=== PATIENT | female | born 1985 | race African-American/Black ===

== ENCOUNTER 2017-06-18 10:17 | Emergency (ER) | payer SELFPAY ==
[~2017-06-18] VITALS: Ht 165.1 cm; Wt 96.0 kg
[~2017-06-18 10:17] MED LIST: AMOX500T PO; HYDR-3533 PO
[2017-06-18 10:18] VITALS: BP 126/102; PULSE 72; RESP 15; TEMP 98.9; O2SAT 98
--- NOTE | 2017-06-18 10:39 | PD ---
HPI Chief Complaint: Oral / Dental Pain or Problem Time Seen by Provider: 10:30 Travel History International Travel<30 days: No Contact w/Intl Traveler<30days: No Traveled to known affect area: No History of Present Illness HPI Patient comes in complaining of left lower dental pain that she awoke with this morning. Describes pain as a throbbing pain that radiates into her left ear. Patient denies doing anything for this prior to coming to the emergency department. Pain is worse with smoking. Denies anything making the pain better. Denies , fevers, difficulty swallowing, nausea, vomiting, headache, or neck pain. PFSH Past Medical History Asthma: No Cancer: No Cardiovascular Problems: No Diminished Hearing: No Endocrine: Yes (PATIENT STATES CAN BE HYPOGLYCEMIC, HAS NOT BEEN TESTED FOR DIABETES) Gastrointestinal Disorders: Yes (SURGERY AN FOR BLOCKED INTESTINES) Genitourinary: No Headaches: Yes Implanted Vascular Access Dvce: No Musculoskeletal: Yes (BROKE RIGHT ARM A CHILD, NOT SURE IF SURGERY) Neurologic: Yes Psychiatric: No Respiratory: No Migraines: Yes Seizures: No Ulcer: Yes (PEPTIC) Tetanus Vaccination: < 5 Years ?: Not LMP: 06/11/17 : 1 Para: 1 Miscarriage: 0 Past Surgical History Abdominal Surgery: Yes (APPENDECTOMY A BABY) Appendectomy: Yes Pacemaker: No Other Surgery: Yes (APPENDECTOMY A BABY) Social History Alcohol Use: No Tobacco Use: Yes (6 cig a day ) Substance Use: No Allergies-Medications (Allergen,Severity, Reaction): Coded Allergies: Fish Containing Products (Unverified Allergy, Severe, SWELLING, 06/18/17) iodine (Unverified Allergy, Severe, SWELLS UP, 06/18/17) potassium iodide (Unverified Allergy, Severe, SWELLS UP, 06/18/17) povidone-iodine (Unverified Allergy, Severe, SWELLS UP, 06/18/17) sodium iodide (Unverified Allergy, Severe, SWELLS UP, 06/18/17) sodium iodide (Unverified Allergy, Severe, SWELLS UP, 06/18/17) Uncoded Allergies: IVP (Allergy, Severe, RASH, 06/02/11) Reported Meds & Prescriptions Reported Meds & Active Scripts Active Naprosyn (Naproxen) 500 Mg Tab 500 Mg PO Q12HR PRN Clindamycin (Clindamycin HCl) 150 Mg Cap 2 Cap PO Q6H 10 Days Lortab 5 mg/325 mg (Hydrocodone/Acetaminophen 5 mg/325 mg) 1 Tab 1 Tab PO Q6H PRN Amoxicillin 500 Mg Cap 500 Mg PO TID Review of Systems Except as stated in HPI: all other systems reviewed are Neg Physical Exam Narrative GENERAL: Well-developed, overly nourished, in no acute distress, and non-ill appearing. SKIN: Focused skin assessment warm and dry. HEAD: Atraumatic. Normocephalic. EYES: Pupils equal and round. EOMI. No scleral icterus. No injection or drainage. ENT: No nasal bleeding or discharge. Mucous membranes pink and moist. Poor dentition with no visible or palpable abscess. Floor the mouth, submandibular, submental are all soft to palpation. NECK: Trachea midline. No cervical lymphadenopathy. Supple. No nuclear rigidity. RESPIRATORY: No accessory muscle use. No respiratory distress. MUSCULOSKELETAL: No obvious deformities. No clubbing. No cyanosis. No edema. Full range of motion. NEUROLOGICAL: Awake and alert. No obvious cranial nerve deficits. Motor grossly within normal limits. Normal speech. PSYCHIATRIC: Appropriate mood and affect; insight and judgment normal. Data Data Last Documented VS Vital Signs Date Time Temp Pulse Resp B/P (MAP) Pulse Ox O2 Delivery O2 Flow Rate FiO2 06/18/17 10:53 06/18/17 10:18 98.9 72 15 98 Orders Orders Clindamycin (Cleocin) (06/18/17 10:45) Naproxen (Naprosyn) (06/18/17 10:45) Ed Discharge Order (06/18/17 10:40) [facility] Medical Decision Making Medical Screen Exam Complete: Yes Emergency Medical Condition: Yes Differential Diagnosis Dental abscess, dental infection, dentalgia Narrative Course The patient presented with dental pain. There is no fever. There is no significant facial swelling or evidence of cellulitis. There is poor dentition but no evidence of drainable abscess at this time. There is no evidence of significant deep or invading abscess at this time. The patient will be placed on antibiotics and pain medication. The patient was instructed to follow up with a dentist. The patient was given the dental referral sheet. Warnings were discussed with the patient regarding worsening of infection. The patient is to return if pain worsens, develops progressive swelling or facial redness or fever. The patient agrees with plan. Patient in no obvious distress upon re-evaluation. Patient was asked if they wanted to speak to my attending, which the patient did not wish to do at this time. Any questions/concerns in reference to patient diagnosis/condition discussed and clarified prior to patient's discharge. Reinforced sheer importance of close follow up with patient's primary physician or primary care clinic and/or dentist. Instructed patient to return to ED immediately, if symptoms return/worsen. Patient showed understanding of above instructions. Further instructions and recommendations were detailed in discharge paperwork. Patient ambulated without difficulty out of ED at discharge. Diagnosis Primary Impression: Infected dental caries Referrals: [facility] Patient Instructions: Dental Abscess (GEN), Dental Caries (DC), General Instructions Additional Instructions: Follow-up with your primary care physician and dentist as soon as possible. Rinse mouth with warm salt water gargles. Take all medication as prescribed. Return to the emergency department if symptoms get worse. Med/Other Pt SpecificInfo: Prescription(s) given Scripts Naproxen (Naprosyn) 500 Mg Tab 500 MG PO Q12HR Y for PAIN SCALE 1 TO 10, #14 TAB 0 Refills Prov: Enmanuel Alanis MD 06/18/17 Clindamycin (Clindamycin) 150 Mg Cap 2 CAP PO Q6H for Infection for 10 Days, #80 CAP 0 Refills Prov: Enmanuel Alanis MD 06/18/17 Disposition: 01 DISCHARGE HOME Condition: Stable Andrea Carlson Jun 18, 2017 10:39
[2017-06-18] MEDS ORDERED: CLIN150C14 PO (10:40)
[2017-06-18] MEDS ORDERED: NAPR500 PO (10:40)
[2017-06-18] MEDS ORDERED: CLINDAMYCIN 150 MG CAP PO ONE (10:45)
[2017-06-18] MEDS ORDERED: NAPROXEN 500 MG TAB PO ONE (10:45)
== END 2017-06-18 10:55 | disposition home or self-care (01) ==
LOC: NEPK 10:17
DX: K02.9 Dental caries, unspecified (principal); F17.210 Nicotine dependence, cigarettes, uncomplicated
CPT/HCPCS: 99283

== ENCOUNTER 2017-08-10 08:29 | Emergency (ER) | payer SELFPAY ==
[~2017-08-10] VITALS: Ht 165.1 cm; Wt 75.0 kg
[~2017-08-10 08:29] MED LIST changes: +CLIN150C14 PO; +NAPR500 PO
[2017-08-10 08:32] VITALS: BP 100/84; PULSE 91; RESP 14; TEMP 98.9; O2SAT 98
[2017-08-10 09:22] LABS: AUTOMATED NEUTROPHIL # 2.5 TH/MM3 (1.8-7.7); BASOPHIL % 0.5 % (0.0-2.0); EOSINOPHIL % 0.6 % (0.0-4.0); HEMATOCRIT 40.1 % (35.0-46.0); HEMOGLOBIN 13.7 GM/DL (11.6-15.3); LYMPH % 41.9 % (9.0-44.0); LYMPHOCYTE # 2.1 TH/MM3 (1.0-4.8); MEAN CELL VOLUME 86.5 FL (80.0-100.0); MEAN CORPUSCULAR HEMOGLOBIN 29.5 PG (27.0-34.0); MEAN CORPUSCULAR HGB CONC 34.1 % (32.0-36.0); MEAN PLATELET VOLUME 8.8 FL (7.0-11.0); MONO % 6.3 % (0.0-8.0); MONOCYTE # 0.3 TH/MM3 (0-0.9); NEUT % 50.7 % (16.0-70.0); PLATELET COUNT 223 TH/MM3 (150-450); RED BLOOD COUNT 4.64 MIL/MM3 (4.00-5.30); RED CELL DISTRIBUTION WIDTH 13.2 % (11.6-17.2)
[2017-08-10 09:35] LABS: BACTERIA, URINE FEW /hpf; BILIRUBIN, URINE NEG (NEG); BLOOD, URINE LARGE (NEG); GLUCOSE,URINE NEG (NEG); KETONE, URINE TRACE mg/dL (NEG); MUCUS URINE FEW /lpf (OCC); NITRITE,URINE NEG (NEG); PH, URINE 5.5 (5.0-8.5); SQUAMOUS EPITHELIAL CELL URINE 3 /hpf (0-5); URINE LEUKOCYTE ESTERASE SMALL (NEG)
[2017-08-10 09:36] LABS: URINE COLOR RED (YELLW/STRAW)
[2017-08-10 09:55] LABS: ALT (GPT) 22 U/L (10-53)
[2017-08-10 09:57] LABS: ALKALINE PHOSPHATASE 87 U/L (45-117); TOTAL BILIRUBIN ADULT 0.4 MG/DL (0.2-1.0); TOTAL PROTEIN 7.4 GM/DL (6.4-8.2)
--- NOTE | 2017-08-10 09:59 | PD ---
HPI Chief Complaint: Bleeding Time Seen by Provider: 09:41 Travel History International Travel<30 days: No Contact w/Intl Traveler<30days: No Traveled to known affect area: No History of Present Illness HPI 32-year-old female complains of vaginal bleeding. Started last night. Last menstruation started a couple days prior. She reports it to be a difficult for her to have heavy menstrual bleeding. She reports using up to 6 pads an hour. No abnormal discharge. No chest pain shortness of breath nausea vomiting fever chills or presyncope complaints. Severity moderate. Location gynecologic. PFSH Past Medical History Asthma: No Cancer: No Cardiovascular Problems: No Diminished Hearing: No Endocrine: Yes (PATIENT STATES CAN BE HYPOGLYCEMIC, HAS NOT BEEN TESTED FOR DIABETES) Gastrointestinal Disorders: Yes (SURGERY AN INFANT FOR BLOCKED INTESTINES) Genitourinary: No Headaches: Yes Implanted Vascular Access Dvce: No Musculoskeletal: Yes (BROKE RIGHT ARM A CHILD, NOT SURE IF SURGERY) Neurologic: Yes Psychiatric: No Respiratory: No Migraines: Yes Seizures: No Ulcer: Yes (PEPTIC) ?: Not LMP: CURRENT : 1 Para: 1 Miscarriage: 0 Past Surgical History Abdominal Surgery: Yes (APPENDECTOMY A BABY) Appendectomy: Yes Pacemaker: No Other Surgery: Yes (APPENDECTOMY A BABY) Social History Alcohol Use: No Tobacco Use: Yes (6 cig a day ) Substance Use: No Allergies-Medications (Allergen,Severity, Reaction): Coded Allergies: Fish Containing Products (Unverified Allergy, Severe, SWELLING, 06/18/17) iodine (Unverified Allergy, Severe, SWELLS UP, 06/18/17) potassium iodide (Unverified Allergy, Severe, SWELLS UP, 06/18/17) povidone-iodine (Unverified Allergy, Severe, SWELLS UP, 06/18/17) sodium iodide (Unverified Allergy, Severe, SWELLS UP, 06/18/17) sodium iodide (Unverified Allergy, Severe, SWELLS UP, 06/18/17) Uncoded Allergies: IVP (Allergy, Severe, RASH, 06/02/11) Reported Meds & Prescriptions Reported Meds & Active Scripts Active Methergine (Methylergonovine Maleate) 0.2 Mg Tab 0.2 Mg PO TID PRN Naprosyn (Naproxen) 500 Mg Tab 500 Mg PO Q12HR PRN Clindamycin (Clindamycin HCl) 150 Mg Cap 2 Cap PO Q6H 10 Days Lortab 5 mg/325 mg (Hydrocodone/Acetaminophen 5 mg/325 mg) 1 Tab 1 Tab PO Q6H PRN Amoxicillin 500 Mg Cap 500 Mg PO TID Review of Systems Except as stated in HPI: all other systems reviewed are Neg Physical Exam Narrative GENERAL: 32-year-old female pleasant well-nourished well-developed Vital Signs Date Time Temp Pulse Resp B/P (MAP) Pulse Ox O2 Delivery O2 Flow Rate FiO2 08/10/17 08:52 78 18 99 Room Air 08/10/17 08:32 98.9 91 14 100/84 (89) 98 SKIN: Warm and dry. HEAD: Atraumatic. Normocephalic. EYES: Pupils equal and round. No scleral icterus. No injection or drainage. ENT: No nasal bleeding or discharge. Mucous membranes pink and moist. NECK: Trachea midline. No JVD. CARDIOVASCULAR: Regular rate and rhythm. RESPIRATORY: No accessory muscle use. Clear to auscultation. Breath sounds equal bilaterally. GASTROINTESTINAL: Abdomen soft, non-tender, nondistended. Hepatic and splenic margins not palpable. MUSCULOSKELETAL: Extremities without clubbing, cyanosis, or edema. No obvious deformities. NEUROLOGICAL: Awake and alert. No obvious cranial nerve deficits. Motor grossly within normal limits. Five out of 5 muscle strength in the arms and legs. Normal speech. PSYCHIATRIC: Appropriate mood and affect; insight and judgment normal. Data Data Last Documented VS Vital Signs Date Time Temp Pulse Resp B/P (MAP) Pulse Ox O2 Delivery O2 Flow Rate FiO2 08/10/17 08:52 78 18 99 Room Air 08/10/17 08:32 98.9 100/84 (89) Orders Orders Complete Blood Count With Diff (08/10/17 08:58) Comprehensive Metabolic Panel (08/10/17 08:58) Urinalysis - C+S If Indicated (08/10/17 08:58) Ed Urine Pregnancytest Poc (08/10/17 08:58) Iv Access Insert/Monitor (08/10/17 08:58) Lipase (08/10/17 08:58) Ed Discharge Order (08/10/17 10:06) Labs Laboratory Tests Test 08/10/17 09:10 White Blood Count 5.0 TH/MM3 Red Blood Count 4.64 MIL/MM3 Hemoglobin 13.7 GM/DL Hematocrit 40.1 % Mean Corpuscular Volume 86.5 FL Mean Corpuscular Hemoglobin 29.5 PG Mean Corpuscular Hemoglobin Concent 34.1 % Red Cell Distribution Width 13.2 % Platelet Count 223 TH/MM3 Mean Platelet Volume 8.8 FL Neutrophils (%) (Auto) 50.7 % Lymphocytes (%) (Auto) 41.9 % Monocytes (%) (Auto) 6.3 % Eosinophils (%) (Auto) 0.6 % Basophils (%) (Auto) 0.5 % Neutrophils # (Auto) 2.5 TH/MM3 Lymphocytes # (Auto) 2.1 TH/MM3 Monocytes # (Auto) 0.3 TH/MM3 Eosinophils # (Auto) 0.0 TH/MM3 Basophils # (Auto) 0.0 TH/MM3 CBC Comment DIFF FINAL Differential Comment Urine Color RED Urine Turbidity HAZY Urine pH 5.5 Urine Specific [place] 1.023 Urine Protein 30 mg/dL Urine Glucose (UA) NEG mg/dL Urine Ketones TRACE mg/dL Urine Occult Blood LARGE Urine Nitrite NEG Urine Bilirubin NEG Urine Urobilinogen LESS THAN 2.0 MG/DL Urine Leukocyte Esterase SMALL Urine RBC /hpf Urine WBC 1 /hpf Urine Squamous Epithelial Cells 3 /hpf Urine Bacteria FEW /hpf Urine Mucus FEW /lpf Microscopic Urinalysis Comment CULT NOT INDICATED Blood Urea Nitrogen 8 MG/DL Creatinine 0.73 MG/DL Random Glucose 93 MG/DL Total Protein 7.4 GM/DL Albumin 3.8 GM/DL Calcium Level 8.9 MG/DL Alkaline Phosphatase 87 U/L Aspartate Amino Transf (AST/SGOT) 24 U/L Alanine Aminotransferase (ALT/SGPT) 22 U/L Total Bilirubin 0.4 MG/DL Sodium Level 140 MEQ/L Potassium Level 4.0 MEQ/L Chloride Level 108 MEQ/L Carbon Dioxide Level 24.4 MEQ/L Anion Gap 8 MEQ/L Estimat Glomerular Filtration Rate 113 ML/MIN Lipase 85 U/L [facility] Medical Decision Making Medical Screen Exam Complete: Yes Emergency Medical Condition: Yes Medical Record Reviewed: Yes Differential Diagnosis Anemia, menstruation, UTI, intrauterine Narrative Course CBC & BMP Diagram 08/10/17 09:10 Total Protein 7.4, Alkaline Phosphatase 87, Alanine Aminotransferase (ALT/SGPT) 22, Total Bilirubin 0.4 Urinalysis shows no UTI, hematuria noted Urine negative The patient is hemodynamically normal. She has been seen here before for vaginal bleeding. Fortunately she is hemodynamically stable and okay for discharge home although duly concerned about the persistent bleeding. Return precautions discussed. Patient was fairly insistent upon receiving medication for the bleeding. We discussed risks benefits and alternatives to Methergine. Patienthas verbalized understanding. We will provide a short course of Methergine. Diagnosis Primary Impression: Vaginal bleeding Referrals: Yareli Espinosa MD 1 day [facility] 1 day Med/Other Pt SpecificInfo: Prescription(s) given Scripts Methylergonovine (Methergine) 0.2 Mg Tab 0.2 MG PO TID Y for BLEEDING, #6 TAB 0 Refills Prov: Mac Ochoa MD 08/10/17 Disposition: 01 DISCHARGE HOME Condition: Stable Mac Ochoa MD Aug 10, 2017 09:59
[2017-08-10] MEDS ORDERED: METH-703 PO (10:05)
[2017-08-10 10:20] LABS: ALBUMIN 3.8 GM/DL (3.4-5.0); AST (GOT) 24 U/L (15-37); BICARBONATE 24.4 MEQ/L (21.0-32.0); BLOOD UREA NITROGEN 8 MG/DL (7-18); CALCIUM 8.9 MG/DL (8.5-10.1); CHLORIDE 108 MEQ/L (98-107); CREATININE 0.73 MG/DL (0.50-1.00); GLOMERULAR FILTRATION RATE 113 ML/MIN (>89); GLUCOSE,RANDOM 93 MG/DL (74-106); SODIUM (NA) 140 MEQ/L (136-145)
== END 2017-08-10 10:38 | disposition home or self-care (01) ==
LOC: NEPC 08:29
DX: N93.9 Abnormal uterine and vaginal bleeding, unspecified (principal); K27.9 Peptic ulcer, site unspecified, unspecified as acute or chronic, without hemorrhage or perforation; F17.210 Nicotine dependence, cigarettes, uncomplicated; Z79.899 Other long term (current) drug therapy; Z88.8 Allergy status to other drugs, medicaments and biological substances
CPT/HCPCS: 80053; 81001; 83690; 84703; 85025; 99283